=== PATIENT | female | born 1970 | race Caucasian/White ===

== ENCOUNTER 2018-08-16 10:09 | Emergency (ER) | payer OTHER ==
--- NOTE | 2018-08-16 10:41 | ER Document Report ---
ED Medical Screen (RME) - General Chief Complaint: Cold Symptoms Stated Complaint: HEAD PAIN/SORE THROAT Time Seen by Provider: 08/16/18 10:39 Mode of Arrival: Ambulatory Information source: Patient, Relative TRAVEL OUTSIDE OF THE [place] IN LAST 30 DAYS: No - HPI Patient complains to provider of: cough; [place] Onset: Last week - pt with cough, congestion, [place] for the past several days. Was seen at earlier this week but results of tests not back yet. Pt. without improvement - Related Data Allergies/Adverse Reactions: Penicillins Allergy (Verified 08/16/18 10:10) Past Medical History Skin Medical History: Reports Hx MRSA - Immunizations Hx Diphtheria, Pertussis, Tetanus Vaccination: Yes Physical Exam - Vital signs Vitals: Temp Pulse Resp BP Pulse Ox 99.1 F 102 H 16 103/60 100 08/16/18 10:15 08/16/18 10:15 08/16/18 10:15 08/16/18 10:15 08/16/18 10:15 Course - Vital Signs Vital signs: Temp Pulse Resp BP Pulse Ox 99.1 F 102 H 16 103/60 100 08/16/18 10:15 08/16/18 10:15 08/16/18 10:15 08/16/18 10:15 08/16/18 10:15
[2018-08-16 11:12] LABS: ABSOLUTE LYMPHOCYTES (AUTO) 0.8 10^3/uL (0.5-4.7); ABSOLUTE MONOCYTES (AUTO) 0.3 10^3/uL (0.1-1.4); ABSOLUTE NEUT (AUTO) 4.2 10^3/uL (1.7-8.2); BASOPHILS % (AUTO) 0.3 % (0-2); EOSINOPHILS % (AUTO) 0.1 % (0-6); HEMATOCRIT 39.8 % (36.0-47.0); HEMOGLOBIN 13.7 g/dL (12.0-15.5); LYMPHOCYTES % (AUTO) 14.7 % (13-45); MEAN CORPUSCULAR HEMOGLOBIN 31.9 pg (27.0-33.4); MEAN CORPUSCULAR HGB CONC 34.5 g/dL (32.0-36.0); MEAN CORPUSCULAR VOLUME 93 fl (80-97); MONOCYTES % (AUTO) 5.9 % (3-13); PLATELET COUNT 117 10^3/uL (150-450); RED BLOOD COUNT 4.31 10^6/uL (3.72-5.28); RED CELL DISTRIBUTION WIDTH 13.2 % (11.5-14.0); TOTAL CELLS COUNTED % (AUTO) 100 %; WHITE BLOOD COUNT 5.3 10^3/uL (4.0-10.5)
--- NOTE | 2018-08-16 11:16 | RADIOLOGY REPORT (SQ) ---
EXAM DESCRIPTION: CHEST 2 VIEWS COMPLETED DATE/TIME: 08/16/2018 11:07 am REASON FOR STUDY: cough COMPARISON: None. EXAM PARAMETERS: NUMBER OF VIEWS: two views TECHNIQUE: Digital Frontal and Lateral radiographic views of the chest acquired. RADIATION DOSE: NA LIMITATIONS: none FINDINGS: LUNGS AND PLEURA: No opacities, masses or pneumothorax. No pleural effusion. MEDIASTINUM AND HILAR STRUCTURES: No masses or contour abnormalities. HEART AND VASCULAR STRUCTURES: Heart normal size. No evidence for failure. BONES: No acute findings. HARDWARE: None in the chest. OTHER: No other significant finding. IMPRESSION: NO ACUTE RADIOGRAPHIC FINDING IN THE CHEST. TECHNICAL DOCUMENTATION: JOB ID: [id number] [employer]- All Rights Reserved Reading location - IP/workstation name: [email or web address]
[2018-08-16] MEDS ORDERED: ONDANSETRON 4 MG TAB.RAPDIS PO ONE (11:21)
--- NOTE | 2018-08-16 11:26 | ER Document Report ---
ED General - General Mode of Arrival: Ambulatory Information source: Patient TRAVEL OUTSIDE OF THE [place] IN LAST 30 DAYS: No <LUIS A FAITH - Last Filed: 08/16/18 11:21> <TRACIE GRIFFIN - Last Filed: 08/16/18 12:19> - General Chief Complaint: Cold Symptoms Stated Complaint: HEAD PAIN/SORE THROAT Time Seen by Provider: 08/16/18 10:39 Notes: 47-year-old female who presents to the emergency department today with complains of one episode of vomiting this morning, chills, headaches, and diaphoresis. Patient states that she was seen at an urgent care x4 days ago and was negative for Strep/Flu. Patient states at that time she was having a sore throat and a dry productive cough which have since subsided. Patient states that she has had chills/headache consistently since then stating that they always seem to happen around 3/4pm in the afternoon and lingering through the night. Patient states that she has had generalized myalgias which she contributes to her "tensing up when she has the chills". Patient also adds that she has been having dysuria for several days as well. (LUIS A FAITH) - Related Data Allergies/Adverse Reactions: Penicillins Allergy (Verified 08/16/18 10:10) Past Medical History - General Information source: Patient, Relative - Social History Smoking Status: Never Smoker Frequency of alcohol use: None Drug Abuse: None Lives with: Family Family History: Reviewed & Not Pertinent Patient has suicidal ideation: No Patient has homicidal ideation: No Skin Medical History: Reports Hx MRSA Psychiatric Medical History: Reports: Hx Anxiety Past Surgical History: Reports: Other - Left 5th toe surgery - Immunizations Hx Diphtheria, Pertussis, Tetanus Vaccination: Yes <LUIS A FAITH - Last Filed: 08/16/18 11:21> Review of Systems - Review of Systems Constitutional: See HPI, Chills, Diaphoresis EENT: denies: Nose congestion Cardiovascular: See HPI, Dizziness Respiratory: See HPI, Cough Gastrointestinal: See HPI, Vomiting. denies: Nausea Genitourinary: See HPI, Dysuria Female Genitourinary: No symptoms reported Musculoskeletal: See HPI, Muscle pain Skin: No symptoms reported Hematologic/Lymphatic: No symptoms reported Neurological/Psychological: See HPI, Headaches -: Yes All other systems reviewed and negative <VIANNEYLUIS A - Last Filed: 08/16/18 11:21> Physical Exam <LUIS A FAITH - Last Filed: 08/16/18 11:21> - Vital signs Vitals: Temp Pulse Resp BP Pulse Ox 99.1 F 102 H 16 103/60 100 08/16/18 10:15 08/16/18 10:15 08/16/18 10:15 08/16/18 10:15 08/16/18 10:15 - Notes Notes: Physical Exam: General: Alert, appears well. HEENT: Normocephalic. Atraumatic. PERRL. Extraocular movements intact. Oropharynx clear. Tenderness with palpation over the left mosque, bilateral maxillary sinus tenderness with palpation, R>L. No intercanthal ttp. TMs are clear bilaterally. No posterior oropharynx erythema or exudate. Neck: Supple. Non-tender. No cervical musculature ten Respiratory: No respiratory distress. Clear and equal breath sounds bilaterally. Cardiovascular: Tachycardic, regular rhythm. Abdominal: Normal Inspection. Non-tender. No distension. Normal Bowel Sounds. Back: Non-tender. No deformity or step off. Extremities: Moves all four extremities. Upper extremities: Normal inspection. Normal ROM. Lower extremities: Normal inspection. No edema. Normal ROM. Neurological: Normal cognition. AAOx4. Normal speech. Psychological: Normal affect. Normal Mood. Skin: Warm. Dry. Normal color. (LUIS A FAITH) Course - Laboratory Result Diagrams: 08/16/18 10:56 08/16/18 10:56 <VIANNEYLUIS A - Last Filed: 08/16/18 11:21> - Laboratory Result Diagrams: 08/16/18 10:56 08/16/18 10:56 - Diagnostic Test Radiology reviewed: Image reviewed, Reports reviewed - Chest x-ray does not show any acute process. <TRACIE RGIFFIN - Last Filed: 08/16/18 12:19> - Vital Signs Vital signs: Temp Pulse Resp BP Pulse Ox 99.1 F 102 H 16 103/60 100 08/16/18 10:15 08/16/18 10:15 08/16/18 10:15 08/16/18 10:15 08/16/18 10:15 - Laboratory Laboratory results interpreted by me: 1208/16/18 08/16/18 10:34 10:56 10:56 Plt Count 117 L Seg Neutrophils % 79.0 H Glucose 115 H AST 65 H ALT 87 H Urine Blood MODERATE H Discharge <LUIS A FAITH - Last Filed: 08/16/18 11:21> <TRACIE GRIFFIN - Last Filed: 08/16/18 12:19> - Discharge Clinical Impression: Viral syndrome Condition: Stable Disposition: HOME, SELF-CARE Additional Instructions: Viral Syndrome: The physician has diagnosed a viral infection. Viruses not only cause "colds," but can cause many different symptoms including generalized aching, fever, headache, cough, diarrhea, nausea, vomiting, and fatigue. The treatment, for the most part, is simply relief of symptoms. This means that antibiotics are usually not given. Rest, fluids, pain medications and, occasionally, medication for the specific symptoms that are most bothersome will be prescribed. Use good handwashing to avoid passing the virus to others. Shared toys should be cleaned with disinfectant. Clean the toilets, sinks, and counter surfaces in bathrooms. Launder clothing in hot water. Contact the physician if you develop any new or unusual symptoms such as severe headache, stiff neck, high fever, chest pain, productive cough, or shortness of breath. You should be rechecked if you don't see marked improvement within seven to 10 days. The urinalysis did not show a suggestion of a urine infection. Urine will be cultured just in case there is something there. You should take something like Azo-Standard to see if it helps the burning on urination. Drink plenty of fluids and get plenty of rest. Take Tylenol every 4 hours to prevent fever and chills. Take ibuprofen 800 mg every 8 hours for the generalized achiness. Follow-up with your primary care provider if not improving. RETURN TO THE EMERGENCY ROOM IF ANY NEW OR WORSENING SYMPTOMS. Scribe Attestation: 08/16/18 11:51 I personally performed the services described in the documentation, reviewed and edited the documentation which was dictated to the scribe in my presence, and it accurately records my words and actions. (TRACIE GRIFFIN) Scribe Documentation - Scribe Written by Ev:: Ev Brown, 08/16/2018 [id number] acting as scribe for :: Joy <LUIS A FAITH - Last Filed: 08/16/18 11:21>
[2018-08-16 11:27] LABS: ALANINE AMINOTRANSFERASE 87 U/L (9-52); ALKALINE PHOSPHATASE 101 U/L (38-126); ANION GAP 14 (5-19); ASPARTATE AMINO TRANSFERASE 65 U/L (14-36); BILIRUBIN,DIRECT 0.3 mg/dL (0.0-0.4); BILIRUBIN,TOTAL 0.6 mg/dL (0.2-1.3); BLOOD UREA NITROGEN 9 mg/dL (7-20); CALCIUM 9.2 mg/dL (8.4-10.2); CARBON DIOXIDE 25 mmol/L (22-30); CHLORIDE 100 mmol/L (98-107); GLUCOSE 115 mg/dL (75-110); POTASSIUM 4.3 mmol/L (3.6-5.0); SODIUM 138.5 mmol/L (137-145); TOTAL PROTEIN 6.8 g/dL (6.3-8.2)
[2018-08-16 11:29] LABS: A TYPE INFLUENZA AG NEGATIVE (NEGATIVE); B INFLUENZA AG NEGATIVE (NEGATIVE)
[2018-08-16 11:35] LABS: APPEARANCE,URINE CLEAR; BILIRUBIN,URINE NEGATIVE (NEGATIVE); COLOR,URINE YELLOW; GLUCOSE, URINE NEGATIVE (NEGATIVE); KETONES,URINE NEGATIVE (NEGATIVE); LEUKOCYTE ESTERASE,URINE NEGATIVE (NEGATIVE); NITRITE,URINE NEGATIVE (NEGATIVE); PROTEIN,URINE NEGATIVE (NEGATIVE); URINE SPECIFIC GRAVITY 1.003; UROBILINOGEN,URINE NEGATIVE mg/dL (<2.0)
[2018-08-16 11:47] LABS: CREATINE KINASE 120 U/L (30-135)
[2018-08-16 12:40] VITALS: BP 122/62
[2018-08-16] MEDS ORDERED: IBUPROFEN 800 MG TABLET PO ONE (12:41)
[2018-08-16] MEDS ORDERED: ACETAMINOPHEN 325 MG TABLET PO ONE (12:41)
== END 2018-08-16 13:58 | disposition home or self-care (01) ==
LOC: ER 10:09
DX: J02.9 Acute pharyngitis, unspecified (principal); B34.9 Viral infection, unspecified; R51 Headache; R68.83 Chills (without fever); R61 Generalized hyperhidrosis; Z88.0 Allergy status to penicillin; Z86.14 Personal history of Methicillin resistant Staphylococcus aureus infection
CPT/HCPCS: 99284; 36415; 87070; 87086; 87880; 82550; 85025; 80053; 81001; 87804; 71046; S0119